=== PATIENT | male | born 1970 | race Caucasian/White ===

== ENCOUNTER → 2017-10-19 | Outpatient (CLI) | payer OTHER ==
[~2017-10-19] MED LIST: GADAVIST IV PRN
--- NOTE | 2017-10-19 13:58 | DIAGNOSTIC IMAGING REPORT ---
R LOWER EXTREMITY JOINT COM CLINICAL HISTORY: 47 years-old Male presenting with RT ANKLE, EVALUATE FX, right ankle fracture and repair June 2008, continued pain and instability. TECHNIQUE: Multisequence, multiplanar MR imaging of the right ankle was performed before and after the administration of intravenous contrast. IV contrast: 9 mL of Gadavist. COMPARISON: None. FINDINGS: Localizer images: Unremarkable. Cortical compression plate and screw fixation of the distal fibula as well as 2 screw fixation of the medial malleolus noted. Regional susceptibility artifact limits evaluation. Abnormal signal intensity along the anterior tibial plafond (series 6 image 10). Diffuse full-thickness cartilage abnormality in the anterior tibial plafond as well as the apposing talar dome. Minimal subchondral cystic change evident in the talar dome. No other sites of bony edema. No acute fracture. No gross evidence of hardware complication allowing for susceptibility artifact. Achilles tendon and plantar fascia intact. Anterior, posterior, and peroneal tendons intact. Normal muscle bulk and muscle signal intensity. No fluid collection. No significant ankle joint effusion. 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 No evidence of acute osseous injury or gross hardware complication. Electronically signed by: Kamari Riley M.D. 10/19/2017 1:56 PM Dictated Date/Time: 10/19/2017 1:51 PM
== END | disposition home or self-care (01) ==
LOC: C.MRIBC 12:41
PROVIDERS: ATTEND Podiatrist Foot & Ankle Surgery
DX: M24.871 Other specific joint derangements of right ankle, not elsewhere classified (principal); M76.891 Other specified enthesopathies of right lower limb, excluding foot; M12.571 Traumatic arthropathy, right ankle and foot